=== PATIENT | male | born 1980 | race Two or more races ===

== ENCOUNTER 2024-07-29 10:10 | Emergency (ER) | payer OTHER ==
[~2024-07-29] VITALS: Ht 160 cm; Wt 81.0 kg
[2024-07-29] MEDS: HYDROcodone-ACET 5/325MG TAB PO ONE (10:33)
[2024-07-29 10:34] VITALS: PULSE 93; RESP 17; O2SAT 97
[2024-07-29] MEDS ORDERED: HYDR-4902 PO (13:48)
[2024-07-29 14:14] VITALS: BP 103/73; PULSE 83; RESP 16; TEMP 97.9; O2SAT 97
== END 2024-07-29 14:27 | disposition home or self-care (01) ==
LOC: ER 10:10
DX: S42.022A Displaced fracture of shaft of left clavicle, initial encounter for closed fracture (principal); F17.200 Nicotine dependence, unspecified, uncomplicated; V00.141A Fall from scooter (nonmotorized), initial encounter; Y93.89 Activity, other specified; Y92.89 Other specified places as the place of occurrence of the external cause; Y99.8 Other external cause status
CPT/HCPCS: 29105; 73000; 73030